=== PATIENT | male | born 1965 | race Caucasian/White ===

== ENCOUNTER 2018-08-26 15:44 | Emergency (ER) | payer MEDICAID ==
[2018-08-26 15:45] VITALS: BMI 26.6
[2018-08-26] MEDS ORDERED: DiphenhydrAMINE 50 mg/ml Inj IVP STA (16:23)
--- NOTE | 2018-08-26 16:46 | RAD ---
HISTORY: chest pain COMPARISON: Chest x-ray performed 02/13/13 TECHNIQUE: Chest PA and lateral FINDINGS: LUNGS: No focal consolidation. Please note that chest x-ray has limited sensitivity for the detection of pulmonary masses. PLEURA: No significant pleural effusion identified. No definite pneumothorax . CARDIOVASCULAR: Heart size appears within normal limits. Dense atherosclerotic calcification present. OSSEOUS STRUCTURES: Degenerative changes of the spine. VISUALIZED UPPER ABDOMEN: Elevated right hemidiaphragm. OTHER FINDINGS: None. IMPRESSION: No focal consolidation.
[2018-08-26 17:01] LABS: BASO % 0.5 % (0.0-2.0); EOS # 0.1 K/uL (0.0-0.7); EOS % 1.3 % (0.0-4.0); HEMOGLOBIN 13.2 g/dL (12.0-18.0); LYMPH # 1.1 K/uL (1.0-4.3); LYMPH % 20.4 % (20.0-40.0); MEAN CORPUSCULAR HGB CONC 32.9 g/dL (33.0-37.0); MEAN PLATELET VOLUME 7.8 fL (7.2-11.7); MONO # 0.4 K/uL (0.0-0.8); MONO % 7.1 % (0.0-10.0); NEUT # 3.9 K/uL (1.8-7.0); NEUT % 70.7 % (50.0-75.0); RBC 4.56 Mil/uL (4.40-5.90); RED CELL DISTRIBUTION WIDTH 12.9 % (11.5-14.5); WHITE BLOOD COUNT 5.5 K/uL (4.8-10.8)
--- NOTE | 2018-08-26 17:02 | C.PDOC ---
History Of Present Illness 52 year old male, whose past medical history includes hypertension and hypercholesterolemia, presents to the ED for evaluation of reproducible left- sided chest pain that has been intermittent for around 2 weeks. Patient was evaluated by his PMD and referred to a granulator operator, Dr. Arenas. Patient is scheduled for an appointment on 09/28/18, but could not wait until then. He denies fever, chills, headache, dizziness, shortness of breath, palpitations, nausea, vomiting, abdominal pain, extremity numbness/weakness. At present time, pt appears slightly anxious, tremolos. Pt reports, " work alot, sleep few hours". Time Seen by Provider: 08/26/18 16:09 Chief Complaint (Nursing): Chest Pain History Per: Patient History/Exam Limitations: no limitations Onset/Duration Of Symptoms: Intermittent Episodes (two weeks ) Current Symptoms Are (Timing): Still Present Quality: "Pain" Associated Symptoms: denies: Nausea Additional History Per: Patient Past Medical History Reviewed: Historical Data, Nursing Documentation, Vital Signs Vital Signs: Last Vital Signs Temp 98.6 F 08/26/18 16:09 Pulse 104 H 08/26/18 16:09 Resp 18 08/26/18 16:09 BP 161/92 H 08/26/18 16:09 Pulse Ox 98 08/26/18 16:09 - Medical History PMH: HTN, Hypercholesterolemia Surgical History: No Surg Hx Family History: States: Unknown Family Hx - Social History Hx Alcohol Use: No Hx Substance Use: No - Immunization History Hx Tetanus Toxoid Vaccination: No Hx Influenza Vaccination: Yes Hx Pneumococcal Vaccination: No Review Of Systems Except As Marked, All Systems Reviewed And Found Negative. Constitutional: Negative for: Fever, Chills Eyes: Negative for: Vision Change Cardiovascular: Positive for: Chest Pain. Negative for: Palpitations, Edema, Light Headedness Respiratory: Negative for: Shortness of Breath Gastrointestinal: Negative for: Nausea, Vomiting, Abdominal Pain, Diarrhea Genitourinary: Negative for: Dysuria Musculoskeletal: Negative for: Neck Pain Neurological: Negative for: Weakness, Numbness, Headache, Dizziness Physical Exam - Physical Exam Appears: Well, Non-toxic, Other (slightly anxious ) Skin: Normal Color, Warm, Dry Head: Normacephalic Eye(s): bilateral: PERRL Nose: No Flaring Oral Mucosa: Moist Throat: No Erythema, No Drooling Neck: Trachea Midline, Supple Chest: Symmetrical, No Deformity, Tenderness (reproducible, to left anterior chest wall over pectoralis muscle ) Cardiovascular: Rhythm Regular, No Murmur, No JVD, Other ((-) carotid bruits b/L) Respiratory: Normal Breath Sounds, No Rales, No Rhonchi, No Wheezing Gastrointestinal/Abdominal: Soft, No Tenderness, No Guarding, No Rebound Back: No CVA Tenderness Extremity: Normal ROM, No Pedal Edema, Capillary Refill (less than 2 seconds ), No Swelling Neurological/Psych: Oriented x3, Normal Speech, Normal Cognition, Normal Motor, Normal Sensation, Normal Reflexes ED Course And Treatment - Laboratory Results Result Diagrams: 08/26/18 16:56 08/26/18 16:56 Lab Interpretation: No Acute Changes ECG: Interpreted By Me, Viewed By Me (and Ed attending) ECG Rhythm: Sinus Tachycardia ECG Interpretation: Normal Interpretation Of ECG: Sinus tach@100/min, no acute t wave or ST-T changes. Rate From EC O2 Sat by Pulse Oximetry: 98 (on RA) Pulse Ox Interpretation: Normal - Other Rad CXR X-Ray: Viewed By Me, Read By Radiologist Interpretation: HISTORY: chest pain. COMPARISON: Chest x-ray performed 02/13/13. TECHNIQUE: Chest PA and lateral. FINDINGS: LUNGS: No focal consolidation. Please note that chest x-ray has limited sensitivity for the detection of pulmonary masses. PLEURA: No significant pleural effusion identified. No definite pneumothorax . CARDIOVASCULAR: Heart size appears within normal limits. Dense atherosclerotic calcification present. OSSEOUS STRUCTURES: Degenerative changes of the spine. VISUALIZED UPPER ABDOMEN: Elevated right hemidiaphragm. OTHER FINDINGS: None. IMPRESSION: No focal consolidation. Progress Note: Bloodwork, urinalysis, EKG, and CXR ordered and reviewed. Benadryl IVP and Toradol IVP given. Pt as OBS in ED for 2 hours. On re-eval, pt reports mod improvement in pian, appears more comfortable now. Afebrile, hemodynamicaly stable. Non-toxic. [id number]% RA. neck: Supple, (-) JVD, (-) carotid bruits B/L. ENT: no acute findings. Lungs: CTA B/L, BS equal B/L. CVS: (+)S1S2, reg, (-) murmur. Abd: benign, (-) guarding, (-) rebound. Neurologicaly intact. Blood work review, mild hyperglycemia noted. Troponin- negative. EKG, CXR- normal study. UA (-) ketone. Disposition Counseled Patient/Family Regarding: Studies Performed, Diagnosis, Need For Foll owup, Rx Given - Disposition Referrals: Alberto Rivera MD [Staff Provider] - Jessica Arneas MD [Staff Provider] - Disposition: HOME/ ROUTINE Disposition Time: 18:12 Condition: STABLE Additional Instructions: Take Aspirin 81 mg daily Follow up with PMD, cardiology in 1-2 days for re-evaluation. return to ED at any time if any worsening or new changes. Prescriptions: DiphenhydrAMINE [Benadryl] 50 mg PO HS #10 cap Instructions: Chest Pain (DC), Hyperglycemia, Adult Forms: [employer] ([employer]) Print Language: COMORAN - Clinical Impression Clinical Impression: Chest pain, Hyperglycemia - Scribe Statement The provider has reviewed the documentation as recorded by the Scribe (Sharmin Oh) All medical record entries made by the Scribe were at my direction and personally dictated by me. I have reviewed the chart and agree that the record accurately reflects my personal performance of the history, physical exam, medical decision making, and the department course for this patient. I have also personally directed, reviewed, and agree with the discharge instructions and disposition.
[2018-08-26] MEDS ORDERED: DiphenhydrAMINE 50 mg/ml Inj ONE (17:06)
[2018-08-26 17:14] LABS: ALB/GLOB RATIO 1.5 (1.0-2.1); ALBUMIN 4.6 g/dL (3.5-5.0); ALT/SGPT 25 U/L (21-72); AST/SGOT 25 U/L (17-59); BLOOD UREA NITROGEN 16 mg/dL (9-20); CALCIUM 9.2 mg/dl (8.6-10.4); GFR NON-AFRICAN AMERICAN > 60
[2018-08-26 17:17] LABS: SQUAMOUS EPITHIAL < 1 /hpf (0-5); URINE BACTERIA RARE (<OCC); URINE BILIRUBIN NEGATIVE (NEGATIVE); URINE BLOOD NEGATIVE (NEGATIVE); URINE CLARITY Clear (Clear); URINE COLOR Straw (YELLOW); URINE GLUCOSE (UA) 2+ mg/dL (Normal); URINE LEUKOCYTE ESTERASE NEG Leu/uL (Negative); URINE PROTEIN NEGATIVE (NEGATIVE); URINE UROBILINOGEN NORMAL mg/dL (0.2-1.0)
[2018-08-26 17:20] LABS: INR 1.1; PROTHROMBIN TIME 11.6 SECONDS (9.7-12.2)
[2018-08-26 17:25] LABS: B-TYPE NATRIURETIC PEPTIDE 60.5 pg/mL (0-900)
[2018-08-26 19:22] VITALS: BP 131/82; PULSE 95; RESP 16; TEMP 98.3; O2SAT 100
--- NOTE | 2018-08-27 19:10 | CARD ---
APPROVED REPORT Date of service: 08/26/2018 EKG Measurement Heart [id number] <Conclusion> Normal sinus rhythm Normal ECG
== END 2018-08-26 19:22 | disposition home or self-care (01) ==
LOC: C.ER 15:44
DX: R07.9 Chest pain, unspecified (principal); R73.9 Hyperglycemia, unspecified
CPT/HCPCS: 71046; 80053; 81001; 83880; 84484; 85025; 85610; 85730; 93005; 96374; 96375; 99285; J1200; J1885

== ENCOUNTER 2018-11-28 17:12 | Emergency (ER) | payer MEDICAID | END 2018-11-28 19:47 | disposition home or self-care (01) | LOC: C.ER 17:12 ==